=== PATIENT | male | born 1990 | race Caucasian/White ===

== ENCOUNTER 2019-08-18 14:46 | Emergency (ER) | payer BC ==
[~2019-08-18] VITALS: Ht 177.8 cm; Wt 136.4 kg
[~2019-08-18 14:46] MED LIST: LEVAQUIN 5500 MG/TAB PO; LORTAB 5/500 501 TAB PO; NO HOME MEDICATIONS
[2019-08-18 14:52] VITALS: BP 138/76; TEMP 98.2
[2019-08-18] MEDS ORDERED: PRINIVIL10 MG PO (14:54)
[2019-08-18 16:05] VITALS: PULSE 84
== END 2019-08-18 16:07 | disposition home or self-care (01) ==
LOC: COL.ER 14:46
DX: S60.222A Contusion of left hand, initial encounter (principal); W22.8XXA Striking against or struck by other objects, initial encounter; Y92.009 Unspecified place in unspecified non-institutional (private) residence as the place of occurrence of the external cause
CPT/HCPCS: Q4021

== ENCOUNTER → 2020-09-10 | Outpatient (CLI) | payer BC ==
[~2020-09-10] MED LIST changes: +PRINIVIL10 MG PO
== END ==
LOC: ZCOL.LAB 18:18
DX: Z20.828 Contact with and (suspected) exposure to other viral communicable diseases (principal)